=== PATIENT | male | born 1965 | race Caucasian/White ===

== ENCOUNTER 2016-11-11 21:29 | Emergency (ER) | payer OTHER ==
[2016-11-11 21:48] VITALS: BP 137/77; PULSE 76; TEMP 99.7; BMI 31.6
--- NOTE | 2016-11-11 22:17 | PDOC ---
History of Present Illness - General Chief Complaint: Pain Stated Complaint: RIGHT SHOULDER PAIN Time Seen by Provider: 11/11/16 21:32 - History of Present Illness Initial Comments: This 51-year-old man with a four-year history of rheumatoid arthritis presents with a flare of his RA in the right shoulder. Patient noted increased pain, consistent with his usual flare episodes in the right shoulder 2 days ago. There was no history of trauma or overuse associated with the shoulder. Patient states that he frequently has flareups during humid weather. The patient took double dose of his prednisone yesterday with little relief in the pain. He continued the double dose of prednisone (20 mg) today again with little relief. He has had a mild fever but otherwise no other associated systemic symptoms. He denies any other joint inflammation now. Past History - Past Medical History Allergies/Adverse Reactions: Allergies Allergy/AdvReac Type Severity Reaction Status Date / Time No Known Allergies Allergy Verified 11/11/16 21:38 Home Medications: Ambulatory Orders Folic Acid 1 mg PO DAILY 11/05/14 Rosuvastatin Calcium [Crestor] 10 mg PO HS 11/05/14 Allopurinol [Zyloprim -] 200 mg PO DAILY 11/11/16 Etanercept [Enbrel] 50 mg SQ WEEKLY 11/11/16 Finasteride 5 mg PO DAILY 11/11/16 Metformin HCl 850 mg PO BID 11/11/16 Methotrexate Sodium [Methotrexate] 20 mg PO WEEKLY 11/11/16 Naproxen Sodium [Aleve] 220 mg PO BID PRN 11/11/16 Oxycodone HCl/Acetaminophen [Percocet 5-325 mg Tablet] 1 tab PO Q6H PRN #10 tablet MDD 2 tabs 11/11/16 Prednisone 10 mg PO DAILY PRN 11/11/16 Tamsulosin HCl [Flomax] 0.8 mg PO DAILY 11/11/16 Diabetes: No GI Disorders: Yes (h pylori) HTN: No Hypercholesterolemia: Yes Suicide Attempt (Hx): No Other medical history: RHEUMATOID ARTHRITIS - Surgical History Appendectomy: Yes - Immunization History Td Vaccination: Yes Immunization Up to Date: Yes - Psycho/Social/Smoking Cessation Hx Anxiety: No Suicidal Ideation: No Smoking Status: No Smoking History: Never smoked Number of Cigarettes Smoked Daily: 0 Hx Alcohol Use: No Drug/Substance Use Hx: No Substance Use Type: None Review of Systems - Review of Systems Able to Perform ROS?: Yes Comments:: 12 point review of systems is negative except for what is noted in the history of present illness *Physical Exam - Vital Signs Last Vital Signs Temp Pulse Resp BP Pulse Ox 99.7 F H 76 16 137/77 96 11/11/16 21:30 11/11/16 21:30 11/11/16 21:30 11/11/16 21:30 11/11/16 21:30 - Physical Exam Comments: GENERAL: The patient is awake, alert, and fully oriented, in moderate distress secondary to right shoulder pain; right arm in sling HEAD: Normal with no signs of trauma. EYES: Pupils equal, round and reactive to light, extraocular movements intact, sclera anicteric, conjunctiva clear with no pallor. ENT: moist mucous membranes. Ears normal, nares patent, oropharynx clear without exudates. NECK: Normal range of motion, supple without lymphadenopathy, JVD, or masses. LUNGS: Breath sounds equal, clear to auscultation bilaterally. No wheeze/ crackles. HEART: Regular rate and rhythm, normal S1 and S2 without murmur or rub. ABDOMEN: Soft/nontender/nondistended. BS wnl. No guarding or rebound. No palpable masses. No hepatosplenomegaly. EXTREMITIES: Pain with movement of right shoulder; extremities otherwise normal NEUROLOGICAL: Cranial nerves II through XII grossly intact. Normal speech, normal gait. PSYCH: Normal mood, normal affect. SKIN: Warm, Dry, normal turgor, no rashes or lesions noted. Medical Decision Making - Medical Decision Making This 51-year-old man presents with a 2 day history of flareup of rheumatoid arthritis of his right shoulder. 80 mg Solu-Medrol IV will be given as acute pulse anti-inflammatory therapy. Patient asked for and will be given 1 tab of Percocet 5/325 now for further pain relief. Patient states that he has taken Percocet in the past as needed ( rarely) for flareup joint pain. Prescription for Percocet 5/325 (#10) to be used as needed for severe pain , will be sent to his pharmacy. Patient strongly advised to call his environment friendly landscape designer tomorrow for further instructions regarding medications and appointments for evaluation. He should return to the emergency room if he has worsening pain, further joint involvement or fever/chills. *DC/Admit/Observation/Transfer Diagnosis at time of Disposition: Flare of rheumatoid arthritis - Discharge Dispostion Disposition: HOME Condition at time of disposition: Stable - Prescriptions Prescriptions: Oxycodone HCl/Acetaminophen [Percocet 5-325 mg Tablet] 1 tab PO Q6H PRN #10 tablet MDD 2 tabs PRN Reason: Severe Pain - Referrals Referrals: Lorne Coyle MD [Primary Care Provider] - - Patient Instructions Printed Discharge Instructions: DI for Rheumatoid Arthritis Additional Instructions: Continue prescribed medications Percocet 5/325 up to 2 times a day as needed for severe pain Contact your environment friendly landscape designer tomorrow morning for follow-up within the next 2 days Return to ER if you have persistent, severe pain
[2016-11-11] MEDS ORDERED: methylPREDNISolone NA SUCC 125 MG/2 ML VIAL IVPB ONE (22:23)
[2016-11-11] MEDS ORDERED: methylPREDNISolone NA SUCC 40 MG/1 ML VIAL ONE (22:29)
[2016-11-11] MEDS ORDERED: methylPREDNISolone NA SUCC 125 MG/2 ML VIAL IVPUSH ONE (22:35)
== END 2016-11-11 23:21 | disposition home or self-care (01) ==
LOC: FER 21:29
PROC: 3E033GC Introduction of Other Therapeutic Substance into Peripheral Vein, Percutaneous Approach (ICD-10-PCS; principal; 2016-11-11)
DX: M06.811 Other specified rheumatoid arthritis, right shoulder (principal); E78.00 Pure hypercholesterolemia, unspecified
CPT/HCPCS: 96374; 99282-25

== ENCOUNTER 2018-09-25 21:04 | Emergency (ER) | payer OTHER ==
[2018-09-25 21:12] VITALS: BP 129/88; PULSE 68; TEMP 99; BMI 31.7
[2018-09-25] MEDS ORDERED: CEPHALEXIN MONOHYDRATE 500 MG CAPSULE (UD) PO ONE (21:27)
--- NOTE | 2018-09-25 21:27 | PDOC ---
Documentation entered by Familia Stahl SCRIBE, acting as scribe for Annika Sheppard MD. Annika Sheppard MD: This documentation has been prepared by the Favio gomez Collisia, SCRIBE, under my direction and personally reviewed by me in its entirety. I confirm that the documentation accurately reflects all work, treatment, procedures, and medical decision making performed by me. History of Present Illness - General Chief Complaint: Laceration Stated Complaint: LH 3RD FINGER LAC History Source: Patient Exam Limitations: No Limitations - History of Present Illness Initial Comments: 09/25/18 21:27 Assessment and plan: This is a 53-year-old male who comes in with an avulsion of the tip of his left ring finger. Patient is on a means of present as well as a blood thinner so finger was treated with Dilaudid and the tip was Dermabond addendum to stop the bleeding. Given a first dose of Keflex and a 5 day prescription of Keflex to prevent infection. Patient discharged home will follow -up with his primary care doctor. 09/25/18 21:30 The patient is a 54 year old male with a significant past medical history of RA , gout and prostate who presents to the emergency department s/p injury to his left ring finger prior to arrival. The patient states that he was at home chopping up a salad with a kitchen knife when he accidentally cut his finger. It is noted that the patient is on an immunosuppressant and blood thinner ( Npril). He states that after the onset of incident he washed the area, applied neosporin and applied several bandaids to attempt to control the bleeding. The patient denies any numbness, tingling sensation or weakness. He denies any other symptoms or complaints. PAST MEDICAL HISTORY: RA, gout and prostate PAST SURGICAL HISTORY: no significant history FAMILY HISTORY: no pertinent history SOCIAL HISTORY: Pt lives with family and is employed. MEDICATIONS: reviewed ALLERGIES: As per nursing notes General: No fevers or chills, no weakness, no weight loss HEENT: No change in vision. No sore throat,. No ear pain CardioVascular: No chest pain or shortness of breath Respiratory:No cough, or wheezing. Gastrointestinal: no nausea, vomiting, diarrhea or constipation, No rectal bleeding Genitourinary: No dysuria, hematuria, or frequency Musculoskeletal: (+)left ring finger lac. No joint or muscle pain or swelling Neurologic: No headache, vertigo, dizziness or loss of consciousness Psychiatric: nor depression Skin: No rashes or easy bruising Endocrine: no increased thirst or abnormal weight change Allergic: no skin or latex allergy All other systems reviewed and normal GENERAL: The patient is awake, alert, and fully oriented, in no acute distress. HEAD: Normal with no signs of trauma. EYES: Pupils equal, round and reactive to light, extraocular movements intact, sclera anicteric, conjunctiva clear. EXTREMITIES:(+) Left ring finger has a small avulsion at the tip approximately 3x5mm Normal range of motion, no edema. NEUROLOGICAL: Normal speech, normal gait. PSYCH: Normal mood, normal affect. SKIN: Warm, Dry, normal turgor, no rashes or lesions noted. 09/25/18 21:50 Past History - Past Medical History Allergies/Adverse Reactions: Allergies Allergy/AdvReac Type Severity Reaction Status Date / Time No Known Allergies Allergy Verified 11/11/16 21:38 Home Medications: Ambulatory Orders Rosuvastatin Calcium [Crestor] 10 mg PO HS 11/05/14 Allopurinol [Zyloprim -] 200 mg PO DAILY 11/11/16 Etanercept [Enbrel] 50 mg SQ WEEKLY 11/11/16 Methotrexate Sodium [Methotrexate] 20 mg PO WEEKLY 11/11/16 Tamsulosin HCl [Flomax] 0.8 mg PO DAILY 11/11/16 metFORMIN HCL [Metformin HCl] 850 mg PO BID 11/11/16 Cephalexin [Keflex] 500 mg PO QID #20 capsule 09/25/18 Diabetes: No GI Disorders: Yes (h pylori) HTN: No Hypercholesterolemia: Yes - Surgical History Abdominal Surgery: Yes (hernia repair) Appendectomy: Yes - Immunization History Td Vaccination: Yes Immunization Up to Date: Yes - Suicide/Smoking/Psychosocial Hx Smoking Status: No Smoking History: Former smoker Number of Cigarettes Smoked Daily: 0 If you are a former smoker, when did you quit?: 20 years ago Hx Alcohol Use: No Drug/Substance Use Hx: No Substance Use Type: None *Physical Exam - Vital Signs Last Vital Signs Temp Pulse Resp BP Pulse Ox 99 F 68 17 129/88 98 09/25/18 21:06 09/25/18 21:06 09/25/18 21:06 09/25/18 21:06 09/25/18 21:06 *DC/Admit/Observation/Transfer Diagnosis at time of Disposition: Laceration of finger Qualifiers: Encounter type: initial encounter Finger: ring finger Damage to nail status: without damage Foreign body presence: without foreign body Laterality: left Qualified Code(s): S61.215A - Laceration without foreign body of left ring finger without damage to nail, initial encounter - Discharge Dispostion Disposition: HOME Condition at time of disposition: Stable Decision to Admit order: No - Prescriptions Prescriptions: Cephalexin [Keflex] 500 mg PO QID #20 capsule - Referrals Referrals: Lorne Coyle MD [Primary Care Provider] - - Patient Instructions Printed Discharge Instructions: DI for Laceration Repair With Dermabond Additional Instructions: Tylenol or Motrin as needed for pain Take Keflex one tablet 4 times a day for 5 days to prevent infection Return to the emergency department immediately with ANY new, persistent or worsening symptoms. Continue any medications as previously prescribed by your physician. You should follow up with your primary doctor as soon as possible regarding today's emergency department visit. . Please make sure your doctor reviews the results of your emergency evaluation. Thank you for coming to the Emergency Department today for your care. It was a pleasure to see you today. Please note that your evaluation is INCOMPLETE until you follow-up with your doctor. - Post Discharge Activity
[2018-09-25] MEDS ORDERED: CEPHALEXIN MONOHYDRATE 500 MG CAPSULE (UD) ONE (21:28)
== END 2018-09-25 21:33 | disposition home or self-care (01) ==
LOC: FER 21:04
PROC: 0HQGXZZ Repair Left Hand Skin, External Approach (ICD-10-PCS; principal; 2018-09-25)
DX: S61.215A Laceration without foreign body of left ring finger without damage to nail, initial encounter (principal); W26.0XXA Contact with knife, initial encounter; Y93.G1 Activity, food preparation and clean up; Y92.89 Other specified places as the place of occurrence of the external cause; M06.9 Rheumatoid arthritis, unspecified; M10.9 Gout, unspecified; Z79.84 Long term (current) use of oral hypoglycemic drugs; Z79.01 Long term (current) use of anticoagulants; Z87.891 Personal history of nicotine dependence
CPT/HCPCS: 99281-25

== ENCOUNTER 2020-02-17 20:20 | Emergency (ER) | payer OTHER ==
[2020-02-17 20:27] VITALS: BP 143/86; PULSE 93; TEMP 99; BMI 32.0
[2020-02-17] MEDS ORDERED: KETOROLAC TROMETHAMINE 60 MG/2 ML VIAL ONE (20:35)
[2020-02-17] MEDS ORDERED: KETOROLAC TROMETHAMINE 60 MG/2 ML VIAL IM ONE (20:46)
== END 2020-02-17 21:01 | disposition home or self-care (01) ==
LOC: FER 20:20
PROC: 3E0233Z Introduction of Anti-inflammatory into Muscle, Percutaneous Approach (ICD-10-PCS; principal; 2020-02-17)
DX: M25.511 Pain in right shoulder (principal)
CPT/HCPCS: 99284-25

== ENCOUNTER 2020-07-21 19:30 | Emergency (ER) | payer OTHER ==
[2020-07-21 19:40] VITALS: BP 150/94; PULSE 90; TEMP 100.5; BMI 32.0
[2020-07-21] MEDS ORDERED: methylPREDNISolone NA SUCC 40 MG/1 ML VIAL IVPUSH ONE (20:09)
[2020-07-21] MEDS ORDERED: methylPREDNISolone NA SUCC 40 MG/1 ML VIAL ONE (20:10)
== END 2020-07-21 20:24 | disposition home or self-care (01) ==
LOC: FER 19:30
PROC: 3E033NZ Introduction of Analgesics, Hypnotics, Sedatives into Peripheral Vein, Percutaneous Approach (ICD-10-PCS; principal; 2020-07-21)
DX: M06.9 Rheumatoid arthritis, unspecified (principal)
CPT/HCPCS: 99284-25

== ENCOUNTER 2020-11-09 20:37 | Emergency (ER) | payer OTHER ==
[2020-11-09 20:41] VITALS: BP 148/87; PULSE 81; TEMP 98; BMI 32.1
[2020-11-09] MEDS ORDERED: methylPREDNISolone NA SUCC 40 MG/1 ML VIAL ONE (22:07)
[2020-11-09] MEDS ORDERED: methylPREDNISolone NA SUCC 125 MG/2 ML VIAL IVPUSH ONE (22:18)
[2020-11-10] MEDS ORDERED: methylPREDNISolone NA SUCC 125 MG/2 ML VIAL IVPUSH ONE (22:03)
== END 2020-11-09 22:34 | disposition home or self-care (01) ==
LOC: FER 20:37
PROC: 3E033GC Introduction of Other Therapeutic Substance into Peripheral Vein, Percutaneous Approach (ICD-10-PCS; principal; 2020-11-09)
DX: M06.861 Other specified rheumatoid arthritis, right knee (principal); M06.841 Other specified rheumatoid arthritis, right hand
CPT/HCPCS: 99284-25

== ENCOUNTER 2021-10-20 09:26 | Emergency (ER) | payer OTHER ==
[2021-10-20 09:41] VITALS: BP 153/89; PULSE 88; TEMP 99.1; BMI 33.0
[2021-10-20 10:18] LABS: INR 0.99 (0.83-1.09); PROTHROMBIN TIME (PATIENT) 11.4 SEC (9.7-13.0)
[2021-10-20 10:20] LABS: HEMATOCRIT 44.6 % (35.4-49); HEMOGLOBIN 15.9 G/dL (11.7-16.9); MCH 32.2 pg (25.7-33.7); MCHC 35.5 g/dl (32.0-35.9); MEAN CELL VOLUME 90.4 fl (80-96); MEAN PLT VOLUME 8.8 fl (7.5-11.1); PLATELET COUNT 184.9 10^3/uL (134-434); RBC 4.93 10^6/uL (4.00-5.60); RDW 15.1 % (11.9-15.9); WHITE BLOOD COUNT 11.1 10^3/uL (4.0-10.8)
[2021-10-20 10:24] LABS: ALBUMIN 4.5 g/dl (3.4-5.0); BILIRUBIN,TOTAL 0.8 mg/dl (0.2-1); CALCIUM 9.5 mg/dl (8.5-10); CREATININE 0.7 mg/dl (0.55-1.3); TOT PROT 7.4 g/dl (6.4-8.2)
== END 2021-10-20 12:12 | disposition home or self-care (01) ==
LOC: FER 09:26
DX: J06.9 Acute upper respiratory infection, unspecified (principal)
CPT/HCPCS: 0241U-QW; 36415; 71046-TC-FY; 80053; 85027; 85379; 85610; 99284-25

== ENCOUNTER 2021-11-10 10:43 | Emergency (ER) | payer OTHER ==
[2021-11-10 10:47] VITALS: BP 152/95; PULSE 92; RESP 17; TEMP 98.9; BMI 72.9
[2021-11-10] MEDS ORDERED: ACETAMINOPHEN 1000 MG/100 ML BAG IVPB ONE (10:58)
[2021-11-10] MEDS ORDERED: diazePAM 5 MG TABLET PO ONE (10:58)
[2021-11-10] MEDS ORDERED: ACETAMINOPHEN INJECTION 100 ML IVPB ONE (11:23)
[2021-11-10] MEDS ORDERED: diazePAM 5 MG TABLET ONE (11:23)
[2021-11-10 11:29] LABS: BASO % 0.8 % (0-2.0); EOS % 0.8 % (0-4.5); HEMATOCRIT 41.4 % (35.4-49); HEMOGLOBIN 14.7 GM/dL (11.7-16.9); LYMPH % 17.8 % (8-40); MCH 30.8 pg (25.7-33.7); MCHC 35.5 g/dl (32.0-35.9); MEAN CELL VOLUME 86.8 fl (80-96); MEAN PLT VOLUME 8.7 fl (7.5-11.1); MONO % 6.1 % (3.8-10.2); NEUT % 74.5 % (42.8-82.8); PLATELET COUNT 165 10^3/uL (134-434); RBC 4.78 M/mm3 (4.00-5.60); RDW 15.2 % (11.9-15.9); WHITE BLOOD COUNT 9.3 K/mm3 (4.0-10.0)
[2021-11-10 11:50] LABS: BLOOD UREA NITROGEN 15.1 mg/dL (7-18); CALCIUM 8.9 mg/dL (8.5-10.1)
[2021-11-10 11:54] LABS: CREATININE 0.6 mg/dL (0.55-1.3)
[2021-11-10 12:54] LABS: ACTIVATED PTT 33.3 SECONDS (25.2-36.5); INR 1.09 (0.83-1.09); PROTHROMBIN TIME (PATIENT) 12.6 SEC (9.7-13.0)
[2021-11-10] MEDS ORDERED: LIDOCAINE 5% TOPICAL PATCH TP ONE (14:59)
[2021-11-10] MEDS ORDERED: LIDOCAINE 5% TOPICAL PATCH ONE (15:18)
[2021-11-10] MEDS ORDERED: LIDOCAINE PATCH REMOVAL MC SCH (22:00)
== END 2021-11-10 15:29 ==
LOC: JER 10:43
PROC: 3E0333Z Introduction of Anti-inflammatory into Peripheral Vein, Percutaneous Approach (ICD-10-PCS; principal; 2021-11-10)
DX: M54.2 Cervicalgia (principal)
CPT/HCPCS: 36415; 70450-TC; 70498-TC; 80048; 85025; 85610; 85730; 99285-25; Q9967